=== PATIENT | male | born 1930 | race Native Hawaiian/Other Pacific Islander ===

== ENCOUNTER 2018-02-17 07:46 | Outpatient (CLI) | payer OTHER ==
[~2018-02-17] VITALS: Ht 172.7 cm; Wt 79.4 kg
== END 2018-02-17 22:36 | disposition home or self-care (01) ==
LOC: NM 07:46
DX: R07.89 Other chest pain (principal); R06.02 Shortness of breath
CPT/HCPCS: 93005; A9500; J2785